=== PATIENT | female | born 1985 | race Caucasian/White ===

== ENCOUNTER 2021-09-03 20:50 | Observation (INO) ==
[2021-09-03 21:32] VITALS: BMI 54.8
--- NOTE | 2021-09-03 22:23 | RAD ---
HISTORYcovid, sobSTUDYCHEST, 1 VIEWCOMPARISONNoneTECHNIQUEChest radiographic imaging 1 view AP projectionFINDINGSNo cardiomegalyPeribronchial cuffing in the hilar regions.No focal infiltrate.No acute osseous abnormality.No pleural effusion.No pneumothorax.Soft tissues are unremarkable.No acute osseous abnormality.IMPRESSIONPeribronchial cuffing in the hilar regions is consistent with the known history of a COVID-19 respiratory infection.Electronically signed by: Marcelo Emerson (Sep 03, 2021 22:22:30)
[2021-09-03 22:38] LABS: BASOPHILS % (AUTO) 0.2 % (0.2-1.0); HEMATOCRIT 39.2 % (36.0-47.0); HEMOGLOBIN 13.3 g/dL (12.0-16.0); LYMPHOCYTES # (AUTO) 1.4 X10^3/uL (1.3-2.9); LYMPHOCYTES % (AUTO) 33.6 % (21.0-51.0); MEAN CORPUSCULAR HEMOGLOBIN 28.3 pg (27.0-34.0); MEAN CORPUSCULAR HGB CONC 33.8 g/dL (33.0-35.0); MEAN CORPUSCULAR VOLUME 83.6 fL (80.0-100.0); MEAN PLATELET VOLUME 8.5 fL (7.4-11.0); MONOCYTES # (AUTO) 0.4 x10^3/uL (0.3-0.8); MONOCYTES % (AUTO) 9.6 % (0.0-13.0); NEUTROPHILS # (AUTO) 2.3 x10^3/uL (2.2-4.8); NEUTROPHILS % (AUTO) 56.6 % (42.0-75.0); PLATELET COUNT 146 X10^3/uL (150.0-450.0); RED BLOOD COUNT 4.69 X10^6/uL (3.5-5.4); RED CELL DISTRIBUTION WIDTH 14.3 % (11.6-16.5)
[2021-09-03 22:45] LABS: ABG ALLEN TEST POS; ABG BASE EXCESS 7.9 mmol/L (-2.0-2.0); ABG HCO3 30.6 mmol/L (22-26)
[2021-09-03 22:50] LABS: ALANINE AMINOTRANSFERASE 57 Units/L (12-78); ALBUMIN 3.4 g/dL (3.4-5.0); ALKALINE PHOSPHATASE 73 Units/L (46-116); ASPARTATE AMINO TRANSFERASE 40 Units/L (15-37); BLOOD UREA NITROGEN 5 mg/dL (7-18); CALCIUM 8.6 mg/dL (8.5-10.1); CARBON DIOXIDE 29.8 mmol/L (21-32); CHLORIDE 101 mmol/L (98-107); COR NA(FOR HYPERGLY) 137 mmol/L (136-145); CREATININE 0.87 mg/dL (0.55-1.02); SODIUM 136 mmol/L (136-145); TOTAL PROTEIN 7.6 g/dL (6.4-8.2); eGFR NON BLACK RACES > 60 (>60)
--- NOTE | 2021-09-03 23:27 | DR.NAUSEAF ---
HPI Time Seen Time Seen by Provider: 09/03/21 23:15 Primary Care Physician Primary Care Physician: ADIEL HPI Comment HPI Comment: PATIENT IS 36YR OLD YR OLD FEMALE IN ER WITH INCREASING SOB, NAUSEA, VOMITING AND DIARRHEA TIMES 6 DAYS. PATIENT TESTED POSITIVE FOR COVID 19 VIRUS 6DAYS AGO. SHE STARTED GETTING ILL 9 DAYS AGO. HER SYMPTOMS ARE WORSE TODAY. PATIENT IS WEAK AND FATIGUE. Complaints Chief Complaint Doctors Comments: INCREASING SOB, NAUSEA, VOMITING AND DIARRHEA TIMES 6 DAYS. Chief Complaint:: Covid positive, SOB, nausea, vomiting, diarrhea, x 6 days. COVID-19 Coronavirus risk:travel/contact w/high risk person: No Has patient experienced Coronavirus symptoms: No Reviewed Nurses Notes Reviewed: Yes Source History Provided: Patient and Significant Other Mode of Arrival Mode of Arrival: Wheelchair Timing Onset of Chief Complaint: 08/27/21 Duration Duration: DAY Context Onset: Spontaneous Recent: None History of: None Quality Quality: Food Particles Associated Signs and Symptoms Abdominal Pain Quality: Burning and Sharp Abdominal Pain Location: Diffuse Symptoms: Abdominal Pain and Diarrhea PMH PMH Past Medical History: Yes Past Medical History Comment: PCOS, HS Past Surgical History: Yes Surgical History: Hysterectomy Family History History of Family Medical Conditions: Yes Family Medical History: Diabetes Mellitus, Cancer, [place], Heart Failure, Sudden Cardiac and Hypertension Social History Alcohol Use: None Do you use any recreational Drugs:: No Infectious screening Have you traveled outside the country in the last 6 months?: No Isolation: Droplet ROS Review of Systems Constitutional: See HPI, Fever, Weakness and Fatigue Eyes: No Symptoms Reported and See HPI ENTM: See HPI, Nose Discharge and Nose Congestion Respiratoy: See HPI, Moist Cough and Short of Breath; negative Wheezing Cardiovascular: See HPI; negative No Symptoms Reported Gastrointestinal/Abdominal: See HPI, Abdominal Pain, Diarrhea, Nausea and Vomiting Genitourinary: No Symptoms Reported and See HPI; negative Dysuria, Frequency and Hematuria Neurological: See HPI, Headache and Weakness; negative Dizziness Musculoskeletal: See HPI, Back Pain and Muscle Pain Integumentary: No Symptoms Reported, See HPI and Change in Color; negative Rash and Juandice Hematologic/Lymphatic: No Symptoms Reported, See HPI and Easy Bruising Endocrine: No Symptoms Reported and See HPI; negative Increased Thirst and Increased Urine Psychiatric: No Symptoms Reported and See HPI All Other Systems: Reviewed and Negative PE Vital Signs Vitals: Temperature 98.3 F Pulse Rate [Left Radial] 87 Pulse Rate 81 Respiratory Rate 23 Blood Pressure [Left Arm] 96/54 Blood Pressure 110/68 O2 Sat by Pulse Oximetry 89 General Limitations: No Limitations General Appearance: Alert and In Distress Head Head Exam: Normal Inspection, Atraumatic and Normocephalic Eyes Eye exam: Normal Appearance and PERRL; negative Scleral Icterus and Conjunctival Injection ENT ENT Exam: Normal Exam, Normal Oropharynx, Normal External Ear Exam and TM's Normal Bilaterally Neck Neck Exam: Normal Inspection and Trachea Midline; negative Tenderness Chest Chest Inspection: Normal Inspection and Symmetric Chest Wall Rise; negative Tenderness Respiratory Respiratory Exam: Normal Lung Sounds Bilat and Respiratory Distress; negative Accessory Muscle Use and Chest Wall Tenderness Respiratory Exam: Bilateral: Clear to Auscultation Cardiovascular Cardiovascular Exam: Regular Rate, Normal Rhythm and Normal Heart Sounds; negative Systolic Murmur and Diastolic Murmur Abdominal Exam Abdominal Exam: Normal Inspection, Normal Bowel Sounds and Soft; negative Tenderness Abdominal Tenderness: Diffuse and Moderate Rectal Rectal Exam: Deferred External Exam: Female: Deferred : Speculum Exam (Female): Deferred : Bimanual Exam (female): Deferred Extremities Extremities Exam: Normal Inspection and Normal Capillary Refill Back Back Exam: Normal Inspection; negative (R) CVA Tenderness and (L) CVA Tenderness Neurologic Neurological Exam: Alert and Oriented X3; negative Motor Sensory Deficit Psychiatric Psychiatric Exam: Normal Affect and Normal Mood Skin Skin Exam: Warm, Dry, Intact and Normal Color MDM Additional Information Obtained Additional Information Obtained From: Family Differential Diagnosis Differential Diagnosis: Considerations may Include:: Gastroenteritis, Pancreatitis, Urinary Tract Infection and Urolithiasis Differential Diagnosis Comment: INFLUENZA, COVID 19 VIRUS INFECTION, PNEUMONIA, HYPOXIA. COURSE Treatment Treatment: SEE ORDERS. NS 1L IV BOLUS, ZOFRAN 4MG IV, SOLUMEDROL 125MG IV IN ER. PATIENT O2 SAT DROPS WHEN SHE MOVE AROUND IN BED. DISCUSSED PATIENT LABS. CHEST CTA WAS NORMAL. PATIENT WILL BE ADMITTED TO HOSPITAL FOR FURTHER MANAGEMENT. Consultation Consultation Comments: PATIENT DISCUSSED WITH DR. FLORES. HE WILL ADMIT PATIENT. Education/Counseling Education/Counseling: Patient Educated On: Diagnosis ROR Labs Reviewed Laboratory Results Reviewed?: Yes Result Diagrams: 09/03/21 22:32 09/03/21 22:32 Laboratory: WBC 4.0 X10^3/uL (3.6-10.0) 09/03/21: RBC 4.69 X10^6/uL (3.5-5.4) 09/03/21: Hgb 13.3 g/dL (12.0-16.0) 09/03/21: Hct 39.2 % (36.0-47.0) 09/03/21: MCV 83.6 fL (80.0-100.0) 09/03/21: MCH 28.3 pg (27.0-34.0) 09/03/21: MCHC 33.8 g/dL (33.0-35.0) 09/03/21: RDW 14.3 % (11.6-16.5) 09/03/21: Plt Count 146 X10^3/uL (150.0-450.0) L 09/03/21: MPV 8.5 fL (7.4-11.0) 09/03/21: Neut % (Auto) 56.6 % (42.0-75.0) 09/03/21: Lymph % (Auto) 33.6 % (21.0-51.0) 09/03/21: [place] % (Auto) 9.6 % (0.0-13.0) 09/03/21: Eos % (Auto) 0.0 % (0.9-2.9) L 09/03/21: Baso % (Auto) 0.2 % (0.2-1.0) 09/03/21: Neut # (Auto) 2.3 x10^3/uL (2.2-4.8) 09/03/21: Lymph # (Auto) 1.4 X10^3/uL (1.3-2.9) 09/03/21: [place] # (Auto) 0.4 x10^3/uL (0.3-0.8) 09/03/21: Eos # (Auto) 0.0 x10^3/uL (0.0-0.2) 09/03/21: Baso # (Auto) 0.0 X10^3/uL (0.0-0.1) 09/03/21 22:32 Absolute Nucleated RBC 0.1 /100WBC 09/03/21 22:32 D-Dimer 0.63 ug/ml (0.0-0.57) H* 09/03/21 22:32 Sample Site Lr 09/03/21 22:08 ABG pH 7.550 (7.35-7.45) H 09/03/21 22:08 ABG pCO2 35.0 mmHg (35.0-45.0) 09/03/21 22:08 ABG pO2 59.0 mmHg (80.0-100.0) L 09/03/21 22:08 ABG HCO3 30.6 mmol/L (22-26) H* 09/03/21 22:08 ABG O2 Saturation 93.0 % (90-100) 09/03/21 22:08 ABG Base Excess 7.9 mmol/L (-2.0-2.0) H 09/03/21 22:08 Sergio Test Pos 09/03/21 22:08 A-a Gradient 47.0 mmHg 09/03/21 22:08 FiO2 21.0 09/03/21 22:08 Blood Gas Comments Sidra well sw 09/03/21 22:08 Sodium 136 mmol/L (136-145) 09/03/21 22:32 Corrected Sodium 137 mmol/L (136-145) 09/03/21 22:32 Potassium 3.2 mmol/L (3.5-5.1) L 09/03/21 22:32 Chloride 101 mmol/L (98-107) 09/03/21 22:32 Carbon Dioxide 29.8 mmol/L (21-32) 09/03/21 22:32 BUN 5 mg/dL (7-18) L 09/03/21 22:32 Creatinine 0.87 mg/dL (0.55-1.02) 09/03/21 22:32 Est GFR (MDRD) Af Amer > 60 (>60) 09/03/21 22:32 Est GFR (MDRD) Non-Af > 60 (>60) 09/03/21 22:32 Glucose 127 mg/dL (65-99) H 09/03/21 22:32 Calcium 8.6 mg/dL (8.5-10.1) 09/03/21 22:32 Corrected Calcium TNP 09/03/21 22:32 Total Bilirubin 0.60 mg/dL (0.2-1.0) 09/03/21 22:32 AST 40 Units/L (15-37) H 09/03/21 22:32 ALT 57 Units/L (12-78) 09/03/21 22:32 Alkaline Phosphatase 73 Units/L (46-116) 09/03/21 22:32 C-Reactive Protein 34.20 mg/L (0-3.0) H 09/03/21 22:32 Total Protein 7.6 g/dL (6.4-8.2) 09/03/21 22:32 Albumin 3.4 g/dL (3.4-5.0) 09/03/21 22:32 Globulin 4.2 g/dL (2.5-4.5) 09/03/21 22:32 Albumin/Globulin Ratio 0.8 Ratio (1.1-2.1) L 09/03/21 22:32 Influenza Type A Ag Negative-presumptive (NEGATIVE) 09/03/21 22:12 Influenza Type B Ag Negative-presumptive (NEGATIVE) 09/03/21 22:12 SARS CoV-2 RNA Rapid ESTRELLA Positive (NEGATIVE) A 09/03/21 22:12 XRAY XRAY Interpreted by: Radiologist (REPORT NOTED AND DISCUSSED WITH PATIENT.) and Self Opioid Opioid Risk Tool Age (Carlos box if 16-45): Yes History of Preadolescent Sexual Abuse: No Total: 1 Total Score Risk Category: Low Risk Copyright: [employer] predicting aberrant behaviors Diagnosis Discharge Problem: COVID-19 virus infection, Pneumonia, Acute respiratory distress, Hypoxia, Generalized weakness Instructions Forms: Precautions for COVID19 [facility] Patient [facility] Social Distancing
--- NOTE | 2021-09-04 00:23 | CT ---
PROCEDURE: CTA Chest .HISTORY: Dyspnea and COVID-19 with elevated D-dimer.TECHNIQUE: Axial images were performed through the chest with the administration of IV contrast with multiplanar reformations . 3D and MIPS reconstructions were performed and reviewed. Dose reduction techniques including Automated Exposure Control (AEC) and adjustment of mA and kV were utilized .COMPARISON: None .TECHNICAL QUALITY: Satisfactory .FINDINGS:Normal aorta.No evidence of pulmonary embolus.Mediastinum and hilar regions show no masses or lymphadenopathy.Normal size heart with no pericardial fluid.Patchy peripheral ground-glass consolidation with rounded morphology consistent with COVID-19 pneumonia. No pulmonary masses or pleural fluid.Visualized upper abdomen shows no significant abnormality.No acute bony abnormality.IMPRESSION:1. No pulmonary embolus or aortic dissection.2. Mild COVID-19 pneumonia bilaterally.Electronically signed by: Darrel Phma (Sep 04, 2021 00:22:19)
[2021-09-04] MEDS ORDERED: ZOFRAN INJ 4 MG VIAL IVP ONE ×2 (00:30→10:19)
[2021-09-04] MEDS ORDERED: ZOFRAN INJ 4 MG VIAL ONE (00:31)
[2021-09-04] MEDS ORDERED: TORADOL 30 MG VIAL ONE (01:21)
[2021-09-04] MEDS ORDERED: NS + KCL 20 MEQ/L 1,000 ML IV ONE ×2 (01:21→01:42)
[2021-09-04] MEDS ORDERED: SOLU-Medrol 125 MG VIAL ONE (01:21)
[2021-09-04] MEDS ORDERED: SOLU-Medrol 125 MG VIAL IVP ONE (01:41)
[2021-09-04] MEDS ORDERED: TORADOL 30 MG VIAL IVP ONE (01:41)
[2021-09-04] MEDS ORDERED: SOLU-Medrol 40 MG VIAL ONE (05:34)
[2021-09-04] MEDS ORDERED: NS 100 ML IV + SPIKE MINIBAG* 100 ML IV ONE (05:38)
[2021-09-04] MEDS: NS 1,000 ML IV 1,000 ML IV SCH (05:41)
[2021-09-04] MEDS: SOLU-Medrol 40 MG VIAL IVP SCH ×3 (05:52→21:21)
[2021-09-04] MEDS: ZOSYN VIAL 3.375 GRAMS 3.375 G in NS 100 ML IV + SPIKE MINIBAG* 100 ML IV SCH ×3 (05:52→21:21)
[2021-09-04 07:44] LABS: ALANINE AMINOTRANSFERASE 51 Units/L (12-78); ALBUMIN 3.1 g/dL (3.4-5.0); ALKALINE PHOSPHATASE 65 Units/L (46-116); ASPARTATE AMINO TRANSFERASE 33 Units/L (15-37); BLOOD UREA NITROGEN 6 mg/dL (7-18); CALCIUM 8.1 mg/dL (8.5-10.1); CARBON DIOXIDE 26.8 mmol/L (21-32); CHLORIDE 103 mmol/L (98-107); COR CA(FOR HYPOALB) 8.8 mg/dL (8.5-10.1); COR NA(FOR HYPERGLY) 139 mmol/L (136-145); CREATININE 0.77 mg/dL (0.55-1.02); SODIUM 136 mmol/L (136-145); eGFR NON BLACK RACES > 60 (>60)
[2021-09-04] MEDS ORDERED: MICRO K EXTEN CAP 10 MEQ PO PRN (07:44)
[2021-09-04] MEDS ORDERED: POTASSIUM CHL 60 MEQ/NS 0.45% 500 ML IV PRN (07:44)
[2021-09-04] MEDS ORDERED: KLOR-CON PO PRN (07:44)
[2021-09-04] MEDS ORDERED: POTASSIUM CHLORIDE LIQ 20 MEQ UDC PO PRN (07:44)
[2021-09-04] MEDS ORDERED: POTASSIUM CHL 40 MEQ/NS 0.45% 500 ML IV PRN (07:44)
[2021-09-04] MEDS ORDERED: K-DUR TAB 20 MEQ PO PRN (07:44)
[2021-09-04] MEDS: ASCORBIC ACID INJ MULTI-DOSE VIAL 1,500 MG in NS 100 ML IV 100 ML IV SCH ×3 (08:30→21:20)
[2021-09-04] MEDS ORDERED: VITAMIN D (1.25MG) PO SCH (09:00)
[2021-09-04] MEDS ORDERED: VITAMIN A PO SCH (09:00)
[2021-09-04] MEDS: LOVENOX INJ 30 MG SYR SC SCH ×2 (09:15→21:37)
[2021-09-04] MEDS: TRICOR TAB 160 MG PO SCH (09:16)
[2021-09-04] MEDS: ZINC SULFATE PO SCH ×2 (09:16→21:21)
[2021-09-04] MEDS: PEPCID TAB 40 MG PO SCH ×2 (09:16→21:21)
[2021-09-04] MEDS ORDERED: REGEN-COV VIAL 10 ML, DRUG FILTER EXTENSION SET * 1 EA in NS 100 ML IV 100 ML IV ONE ×2 (09:20)
[2021-09-04] MEDS: BROVANA IN SCH ×2 (09:30→21:00)
[2021-09-04] MEDS: PULMICORT NEB TX 0.5 MG NEB SCH ×2 (09:30→21:00)
[2021-09-04] MEDS: K-RIDER 10 MEQ/NS 100 ML 10 MEQ/100 ML BAG IV PRN ×2 (11:10→11:50)
[2021-09-04] MEDS: MAGNESIUM SULFATE 1 GRAM/100 mL PREMIX 1 G/100 ML BAG IV PRN ×2 (12:15→13:39)
--- NOTE | 2021-09-04 16:18 | DR.H&P ---
H&P - History & Physical for Day of: H&P Date: 09/04/21 - Chief Complaint Chief Complaint: SHORTNESS OF BREATH, NAUSEA, VOMITING, DIARRHEA - History of Present Illness History of Present Illness: IS A 36 YEAR OLD WHITE FEMALE. SHE PRE SENTED TO THE ER WITH REPORTS OF INCREASING SHORTNESS OF BREATH, NAUSEA, VOMITING, AND DIARRHEA X 6 DAYS. SHE ADMITS TO TESTING POSITIVE FOR COVID-19 6 DAYS AGO. SHE REPORTS THAT SYMPTOMS HAVE BEEN WORSENING. HER PMH INCLUDES: PCOS, HYSTERECTOMY. AUSCULTATION OF LUNG BREWSTER REVEALED DIMINISHED LUNG SOUNDS THROUGHOUT. ON ARRIVAL, HER VITALS WERE 102.6-106-28-90%-123/80. LABS WERE OBTAINED. ABNORMAL LAB VALUES INCLUDED THE FOLLOWING: PLT COUNT 146, D-DIMER 0.63, POTASSIUM 3.2, BUN 5, GLUCOSE 127, AST 40, CRP 34.20. COVID-19 POSITIVE. INFLUENZA NEGATIVE. ABG REVEALED: PH 7.550, P02 59, PC02 35, HC03 30.6, 02 SAT 93, BASE EXCESS 7.9, A-A GRADIENT 47, FI02 21.0. A CHEST XRAY WAS OBTAINED AND REVEALED: Peribronchial cuffing in the hilar regions is consistent with the known history of a COVID-19 respiratory infection. A CHEST CTA WAS OBTAINED AND REVEALED: 1. No pulmonary embolus or aortic dissection.2. Mild COVID-19 pneumonia bilaterally. SHE WAS ADMITTED TO THE HOSPITAL FOR FURTHER EVALUATION AND TREATMENT OF PNEUMONIA DUE TO COVID-19. SHE WAS GIVEN REGEN-COV IV X 1 DOSE. SHE WAS STARTED ON NORMAL SALINE AT 75 ML/HR, ZOSYN 3.375G IV TID, SOLU-MEDROL 80MG IV Q8H, ASCORBIC ACID 1500MG IV Q6H, LOVENOX 30MG SC BID, PULMICORT NEBS, BROVANA INHALER BID, VITAMIN D, TRICOR 160MG PO DAILY, ZINC SULFATE 220MG PO BID, VITAMIN A, PEPCID 40MG PO BID, AND THE POTASSIUM AND MAGNESIUM PROTOCOLS. O THERWISE, WE PLAN TO FOLLOW UP WITH AM LABS AND CHEST XRAY AND CONTINUE TO MONITOR. TIME SPENT ON CLINICAL ASSESSMENT, REVIEWING LABS AND IMAGING, DECISION MAKING, AND DOCUMENTATION WAS GREATER THAN 75 MINUTES. - Past Medical History Additional Medical History: PCOS - Past Surgical History Surgical History: Hysterectomy - Family History Family Medical History: Diabetes Mellitus, Cancer, [place], Coronary Artery Disease, Heart Failure, Hypertension - Social History Alcohol Use: None Drug Use: None - Medications Home Medications: amoxicillin Allergy (Verified 09/03/21 21:21) clindamycin Allergy (Verified 09/03/21 21:21) morphine Allergy (Verified 09/03/21 21:21) Penicillins Allergy (Verified 09/03/21 21:21) CONTINUE taking the following medications NK 09/03/21 [History] - Review of Systems Constitutional: Weakness Eyes: No Symptoms Reported ENT: No Symptoms Reported Respiratory: Shortness of Breath Gastrointestinal: Nausea, Vomiting, Diarrhea Genitourinary: No Symptoms Reported Musculoskeletal: No Symptoms Reported Skin: No Symptoms Reported Neurological: Weakness - Physical Exam Vital Signs: Temperature 98.3 F Pulse Rate [Left Radial] 81 Pulse Rate 82 Respiratory Rate 22 Blood Pressure [Left Arm] 99/56 Blood Pressure 125/79 O2 Sat by Pulse Oximetry 93 Oriented: Normal Eyes: Normal Ear: Normal Nose: Normal Throat: Normal Respiratory: Diminished Throughout Cardiovascular: Normal : Normal Auscultation: Bowel Sounds: Normal Palpation: Normal Tenderness: Normal Skin: Normal Musculoskeletal: Normal Psychiatric: Normal Mood Description: Calm Affect: Normal Speech Pattern: Clear - Assessment/Plan (1) Pneumonia due to 2019 novel coronavirus Status: Acute Plan: ADMIT, NORMAL SALINE AT 75 ML/HR, ZOSYN 3.375G IV TID, SOLU-MEDROL 80MG IV Q8H, ASCORBIC ACID 1500MG IV Q6H, LOVENOX 30MG SC BID, PULMICORT NEBS, BROVANA INHALER BID, VITAMIN D, TRICOR 160MG PO DAILY, ZINC SULFATE 220MG PO BID, VITAMIN A, PEPCID 40MG PO BID, AND THE POTASSIUM AND MAGNESIUM PROTOCOLS. - Allergies Allergies/Adverse Reactions: Allergies Allergy/AdvReac Type Severity Reaction Status Date / Time amoxicillin Allergy Verified 09/03/21 21:21 clindamycin Allergy Verified 09/03/21 21:21 morphine Allergy Verified 09/03/21 21:21 Penicillins Allergy Verified 09/03/21 21:21
[2021-09-05] MEDS: NS 1,000 ML IV 1,000 ML IV SCH ×2 (01:00→05:56)
[2021-09-05] MEDS: ASCORBIC ACID INJ MULTI-DOSE VIAL 1,500 MG in NS 100 ML IV 100 ML IV SCH ×2 (04:10→08:35)
[2021-09-05 05:27] LABS: BASOPHILS % (AUTO) 0.1 % (0.2-1.0); HEMATOCRIT 35.7 % (36.0-47.0); HEMOGLOBIN 11.7 g/dL (12.0-16.0); LYMPHOCYTES # (AUTO) 1.5 X10^3/uL (1.3-2.9); LYMPHOCYTES % (AUTO) 16.4 % (21.0-51.0); MEAN CORPUSCULAR HEMOGLOBIN 27.8 pg (27.0-34.0); MEAN CORPUSCULAR HGB CONC 32.9 g/dL (33.0-35.0); MEAN CORPUSCULAR VOLUME 84.5 fL (80.0-100.0); MEAN PLATELET VOLUME 9.3 fL (7.4-11.0); MONOCYTES # (AUTO) 0.6 x10^3/uL (0.3-0.8); MONOCYTES % (AUTO) 6.6 % (0.0-13.0); NEUTROPHILS # (AUTO) 7.2 x10^3/uL (2.2-4.8); NEUTROPHILS % (AUTO) 76.9 % (42.0-75.0); PLATELET COUNT 192 X10^3/uL (150.0-450.0); RED BLOOD COUNT 4.23 X10^6/uL (3.5-5.4); RED CELL DISTRIBUTION WIDTH 14.6 % (11.6-16.5); WHITE BLOOD COUNT 9.4 X10^3/uL (3.6-10.0)
[2021-09-05] MEDS ORDERED: NS 100 ML IV + SPIKE MINIBAG* 100 ML IV ONE (05:33)
[2021-09-05] MEDS ORDERED: ZOSYN VIAL 3.375 GRAMS IV ONE (05:36)
[2021-09-05 05:43] LABS: ALANINE AMINOTRANSFERASE 41 Units/L (12-78); ALBUMIN 2.8 g/dL (3.4-5.0); ALKALINE PHOSPHATASE 60 Units/L (46-116); ASPARTATE AMINO TRANSFERASE 21 Units/L (15-37); BLOOD UREA NITROGEN 7 mg/dL (7-18); CALCIUM 8.1 mg/dL (8.5-10.1); CARBON DIOXIDE 28.1 mmol/L (21-32); CHLORIDE 107 mmol/L (98-107); COR CA(FOR HYPOALB) 9.1 mg/dL (8.5-10.1); COR NA(FOR HYPERGLY) 146 mmol/L (136-145); CREATININE 0.72 mg/dL (0.55-1.02); MAGNESIUM 1.9 mg/dL (1.7-2.9); SODIUM 144 mmol/L (136-145); TOTAL PROTEIN 6.7 g/dL (6.4-8.2); eGFR NON BLACK RACES > 60 (>60)
[2021-09-05] MEDS: ZOSYN VIAL 3.375 GRAMS 3.375 G in NS 100 ML IV + SPIKE MINIBAG* 100 ML IV SCH (05:56)
[2021-09-05] MEDS: SOLU-Medrol 40 MG VIAL IVP SCH (05:57)
--- NOTE | 2021-09-05 07:18 | RAD ---
HISTORYShortness of breathSTUDYChest AP [id number]/2022 chest x-ray and CTA chestFINDINGSMild hypo inflation accentuates the heart size. It is likely still mildly enlarged. Mild pulmonary venous congestion is present. There are some perihilar interstitial infiltrates on the right. The left lung appears clear. The patchy ground-glass infiltrates visualized on the recent CTA chest are not yet visible on plain film. No pleural effusions are identified. Bony thorax is unremarkable.IMPRESSIONMild cardiomegaly with pulmonary venous congestionMild hypo inflationPerihilar interstitial infiltrates on the rightElectronically signed by: JW HANSEN (Sep 05, 2021 07:17:00)
[2021-09-05] MEDS: BROVANA IN SCH (08:27)
[2021-09-05] MEDS: PULMICORT NEB TX 0.5 MG NEB SCH (08:27)
[2021-09-05] MEDS: ZINC SULFATE PO SCH (08:35)
[2021-09-05] MEDS: PEPCID TAB 40 MG PO SCH (08:35)
[2021-09-05] MEDS: TRICOR TAB 160 MG PO SCH (08:35)
[2021-09-05] MEDS: LOVENOX INJ 30 MG SYR SC SCH (08:35)
[2021-09-05 09:47] VITALS: BP 111/67
[2021-09-06] MEDS ORDERED: VITAMIN D3 125 mcg (5,000 UNITS) PO SCH (09:00)
[2021-09-06] MEDS ORDERED: VITAMIN A PO SCH (09:00)
== END 2021-09-05 12:23 | disposition home or self-care (01) ==
LOC: ER 21:18 → ICU 21:18
PROVIDERS: ADMIT Internal Medicine; ATTEND Internal Medicine